=== PATIENT | female | born 1975 | race Caucasian/White ===

== ENCOUNTER 2022-12-04 08:52 | Emergency (ER) | payer OTHER ==
[~2022-12-04] VITALS: Ht 160 cm; Wt 108.9 kg
[2022-12-04 08:59] VITALS: BP 133/99
--- NOTE | 2022-12-04 09:34 | NUR ---
47 Y/O FEMALE BIB SELF C/O HEADACHE X1 WEEK AND HIGH BP, PER PT SHE DOESNT NORMALLY HAVE HIGH BP. BP IN TRIAGE 133/99. PER PT BP AT HOME 130/110, 125/105 ALLERGY: ERYTHROMYCIN PMH: DENIES
--- NOTE | 2022-12-04 09:56 | NUR ---
AMBULATED TO [facility]
[2022-12-04] MEDS ORDERED: ACETAMINOPHEN 325 MG TAB PO ONE (10:05)
[2022-12-04] MEDS ORDERED: METOCLOPRAMIDE 10 MG TAB PO ONE (10:05)
[2022-12-04] MEDS ORDERED: KETOROLAC 15 MG/ML VIAL IM ONE (10:05)
[2022-12-04 11:21] LABS: BASOPHILS # (AUTO) 0.1 K/uL (0.00-0.22); BASOPHILS % (AUTO) 0.9 % (0.0-2.0); EOSINOPHILS # (AUTO) 0.2 K/uL (0-0.4); EOSINOPHILS % (AUTO) 2.1 % (0.0-4.0); HEMOGLOBIN 13.9 g/dL (12.0-16.0); LYMPHOCYTES # (AUTO) 1.7 K/uL (2.5-16.5); LYMPHOCYTES % (AUTO) 21.8 % (20.5-51.1); MEAN CORPUSCULAR HEMOGLOBIN 30 pg (27-31); MEAN CORPUSCULAR HGB CONC 34 g/dL (33-37); MEAN CORPUSCULAR VOLUME 88.5 fL (80-94); MONOCYTES # (AUTO) 0.5 K/uL (0.8-1.0); MONOCYTES % (AUTO) 6.6 % (1.7-9.3); NEUTROPHILS # (AUTO) 5.4 K/uL (1.8-7.7); NEUTROPHILS % (AUTO) 68.6 % (42.2-75.2); PLATELET COUNT (AUTO) 291 K/uL (140-450); RED BLOOD CELL COUNT(AUTO) 4.63 MIL/uL (4.20-5.40); WHITE BLOOD COUNT (AUTO) 7.8 K/uL (4.8-10.8)
[2022-12-04 11:30] LABS: ALBUMIN 3.8 g/dL (3.4-5.0); ANION GAP 13.5 (8-16); ASPARTATE AMINOTRANSFERASE 21 U/L (15-37); CARBON DIOXIDE 26.5 mmol/L (21-32); CHLORIDE 106 mmol/L (98-107); CREATININE 1.1 mg/dL (0.6-1.3); GFR ARICAN-AMERICAN 69 mL/min (>90); GLUCOSE 99 mg/dL (74-106); SODIUM SERUM 142 mmol/L (136-145); TOTAL BILIRUBIN 0.4 mg/dL (0.0-1.0); UREA NITROGEN, BLOOD 15 mg/dL (7-18)
[2022-12-04] MEDS ORDERED: IBUP-2213 PO (12:14)
[2022-12-04] MEDS ORDERED: FLONAS NS (12:14)
--- NOTE | 2022-12-04 13:00 | NUR ---
pt dc w/o paperwork, adria and jeanine sent to [facility] in [facility].
== END 2022-12-04 13:00 | disposition home or self-care (01) ==
LOC: MED 08:52
DX: R07.9 Chest pain, unspecified (principal); R09.82 Postnasal drip; R51.9 Headache, unspecified; R03.0 Elevated blood-pressure reading, without diagnosis of hypertension; Z79.899 Other long term (current) drug therapy; Z88.8 Allergy status to other drugs, medicaments and biological substances
CPT/HCPCS: 36415; 71045; 80053; 81025; 84484; 85025; 93005; 96372; 99285; J1885; J8597; Q0163